=== PATIENT | male | born 1970 | race Caucasian/White ===

== ENCOUNTER 2022-10-01 19:42 | Emergency (ER) | payer MEDICAID, SELFPAY ==
[2022-10-01 19:43] VITALS: BP 113/87; PULSE 104; RESP 15; TEMP 36.6; O2SAT 97; BMI 26.5
--- NOTE | 2022-10-01 20:05 | CT_ITS ---
STUDY: CT ABDOMEN AND PELVIS WITH CONTRAST REASON FOR EXAM: Male, 52 years old. Abd pain -- IV PO Contrast RADIATION DOSAGE (If Supplied By Facility): CTDIvol = ( 18.85 ) mGy, DLP = ( 1018.93 ) mGycm TECHNIQUE: Transaxial images were obtained from the dome of the diaphragm to the symphysis pubis without oral contrast. Oral and amp; IV Gastrografin and amp; 100mL Isovue-300 was administered. Sagittal and coronal images were reconstructed. Individualized dose optimization techniques were used for this CT. COMPARISON: None. FINDINGS: There is a small pleural-based nodular density measuring 9.4 x 8.3 and 3.8 x 3.8. The visualized portions of the heart are within normal limits. Normal liver. Normal gallbladder and extrahepatic biliary system. Normal spleen. Normal pancreas. Normal bilateral adrenal glands. Normal right kidney. There is a left renal cyst measuring 3.3 x 3 cm with Hounsfield units in the range of simple fluid with well-circumscribed borders. Normal visualized stomach. There is mild distention of the proximal small bowel. There is a thick-walled appearance of the terminal ileum. There is mild distention of the colon especially the transverse colon with air-fluid levels. The patient may have diarrhea. There is diverticulosis without visualized diverticulitis. The appendix is visualized and appears normal. Normal abdominal aorta. Normal inferior vena cava. Normal retroperitoneum. Normal urinary bladder. Normal visualized prostate gland. There is a small umbilical hernia containing fat. Normal osseous structures. CT/Abdomen/Pelvis WITH Contrast IMPRESSION: There are mildly distended loops of small bowel in the left upper quadrant. There is a thick-walled appearance of the terminal ileum and a pattern of air-fluid levels throughout the colon suggesting that the patient has diarrhea. Findings are suspicious for pattern of enterocolitis. Benign-appearing left renal cyst. No appendicitis. Electronically Signed: Laura Silverio MD at 22:36 EST ,
--- NOTE | 2022-10-01 20:06 | EX.ED.DYSGE1 ---
HPI History of Present Illness Chief Complaint: Constipation Informant: patient Onset/Context/Timing Onset: Month(s) Narrative Narrative: Patient presents with not having adequate bowel movement for the past 2 weeks. When asked about his constipation he quickly corrects me and states that he does not have constipation, he has not been that prevents him from being able to pass stool. Patient states this has been an ongoing, waxing and waning issue for the past 2 years. He states this particular flare has been bad for the last 3 months. He was seen at [facility] in [place] in early July. I is able to review that ER note. He states he has also been to see his primary care physician multiple times. He is scheduled for a colonoscopy next week. He states because of the backed up stool he took his MiraLAX and Dulcolax prep yesterday, but only had a small bowel movement and passed a lot of liquid. He states other than that his last bowel movement was a week ago. He denies any prior abdominal surgeries. He has never had a colonoscopy. PFSH PFSH Medical History Anxiety Former smoker Allergy/AdvReac Type Severity Reaction Status Date / Time No Known Allergies Allergy Verified 10/01/22 19:47 Surgical History no surgical history no surgical history Social History Smoking Status: Former smoker ROS ROS ED Constitutional Constitutional ED: Denies chills or fever(s) Eyes Eyes: Denies change in vision or discharge from eye(s) ENT ENT ED: Denies discharge from eye(s), rhinorrhea or sore throat Cardiovascular Cardiovascular: Denies chest pain or palpitations Respiratory/Chest Respiratory/Chest: Denies cough or dyspnea Gastrointestinal Gastrointestinal: Reports abdominal pain, constipation and nausea; Denies diarrhea or vomiting Genitourinary Genitourinary ED: Denies dysuria Musculoskeletal Musculoskeletal: Denies back pain or extremity pain Integumentary Denies Abrasions or rash Neurologic Neurologic: Denies headache(s) or weakness Psychiatric Psychiatric: Denies anxiety or depression Allergic/Immunologic Allergic/Immunologic ED: Denies lip swelling or urticaria EXAM Physical Exam Const Vital Signs: 10/01/22 19:43 Temperature 97.9 F Temperature Source Temporal Pulse Rate 104 H Respiratory Rate 15 Blood Pressure 113/87 H Blood Pressure Mean 95 Pulse Ox 97 Oxygen Delivery Method Room Air Positive well nourished and well developed General Appearance ED: well developed HEENT Reports normocephalic and head/scalp atraumatic Eyes PERRL and EOMs intact bilaterally Neck supple Chest Wall inspection of chest normal and palpation of chest normal Resp normal respiratory effort and clear to auscultation bilaterally Cardio regular rate and regular rhythm GI non-tender Auscultation: hypoactive bowel sounds Palpation: soft Extremity normal to inspection Neuro oriented x3 and no sensory deficits noted Sensorium / Orientation: alert Motor Exam: strength 5/5 throughout Psych Mood & Affect: anxious Skin no rashes or lesions noted MDM MDM MDM Narrative Medical decision making narrative: CBC and chemistry studies obtained to evaluate for leukocytosis, anemia, electrolyte derangement. CT scan of the abdomen and pelvis with p.o. and IV contrast obtained to evaluate for bowel obstruction or other acute etiologies such as colitis. Patient given IV fluids along with morphine and Zofran for pain and nausea control. Lab Data Attestation: I reviewed the patient's lab results. Labs: Laboratory Results - last 24 hr 10/01/22 10/01/22 20:19 20:19 WBC 10.9 RBC 5.35 Hgb 15.7 Hct 47.9 MCV 89.5 MCH 29.3 MCHC 32.8 RDW Std Deviation 43.4 RDW Coeff of Aniket 13.2 Plt Count 299 MPV 9.8 Immature Gran % (Auto) 0.300 Neut % (Auto) 40.7 L Lymph % (Auto) 43.3 H Divide % (Auto) 9.8 Eos % (Auto) 4.8 Baso % (Auto) 1.1 H Absolute Neuts (auto) 4.4 Absolute Lymphs (auto) 4.70 H Nucleated RBC % 0 Atypical Lymphocytes 1+ Reactive Lymphocytes 1+ Platelet Estimate ADEQUATE RBC Morphology N CHROM Anisocytosis RARE Macrocytosis RARE Sodium 141 Potassium 3.4 L Chloride 105 Carbon Dioxide 29.0 Anion Gap 7 BUN 8 Creatinine 1.19 Estim Creat Clear Calc 73.27 Est GFR (MDRD) Af Amer 82 Est GFR (MDRD) Non-Af 68 BUN/Creatinine Ratio 6.7 L Glucose 104 Calcium 9.2 Total Bilirubin 0.30 Direct Bilirubin 0.10 AST 16 ALT 15 L Alkaline Phosphatase 64 Total Protein 7.5 Albumin 3.9 Globulin 3.6 Lipase 200 Radiography Diagnostic Testing: Clinical Impression(s) from Imaging Studies Abdomen/Pelvis CT 10/01/22 20:05 IMPRESSION: There are mildly distended loops of small bowel in the left upper quadrant. There is a thick-walled appearance of the terminal ileum and a pattern of air-fluid levels throughout the colon suggesting that the patient has diarrhea. Findings are suspicious for pattern of enterocolitis. Benign-appearing left renal cyst. No appendicitis. Electronically Signed: Laura Silverio MD at 22:36 EST , Treatment and Re-Evaluation Narrative: CBC is unremarkable with normal white count. Chemistry studies significant only for slightly low potassium at 3.4. LFTs and lipase are normal. CT scan of the abdomen pelvis reveals mildly distended loops of small bowel in the left upper quadrant. There is a thick-walled appearance of the terminal ileum. Findings noted throughout are suspicious for enterocolitis. On my review of the CT, he does have stool noted along the transverse and ascending colon. I do not feel an enema will be beneficial as he does not have significant stool noted in the descending colon. I will give him a bottle of GoLytely. He is scheduled for a colonoscopy next week. Patient has had ongoing symptoms for months with no evidence of leukocytosis or fever. I do not believe he needs antibiotics at this time. Return instructions given. Discharge Plan Triage Chief Complaint: Constipation ED Provider: Emma Anne Dx/Rx/DC Orders Clinical Impression: Constipation, Colitis Instructions: ED Understanding Colitis, ED Constipation (Adult) Primary Care Provider: Kailee Dominguez Referrals: Kailee Dominguez MD [Primary Care Provider] - Activity Restrictions/Additional Instructions: Follow-up for your colonoscopy next week as planned. Disposition Disposition: Home, Self Care
[2022-10-01] MEDS: Ondansetron 4 MG/2 ML Vial IV (20:28)
[2022-10-01] MEDS: 0.9% Normal Saline 1,000 ML 150 ML IV (20:29)
[2022-10-01 20:30] LABS: Absolute Neutrophil Count 4.4 X10^3/uL (2.0-7.7); Basophil# 0.12 X10^3/uL; Basophil% 1.1 % (0-1); Eosinophil# 0.52 X10^3/uL; Eosinophils% 4.8 % (0-5); Hematocrit 47.9 % (40-54); Hemoglobin 15.7 g/dL (13.0-16.5); Lymphocyte % 43.3 % (19-41); Mean Corp Hgb Conc 32.8 g/dL (32-36); Mean Corpuscular Hgb 29.3 pg (27.0-32.0); Mean Corpuscular Volume 89.5 fL (80-94); Mean Platelet Vol. 9.8 fl (6.2-12.0); Monocyte# 1.06 X10^3/uL; Monocyte% 9.8 % (0-10); NRBC Flagged by Analyzer 0 % (0-5); Neutrophil # 4.42 X10^3/uL (2.7-7.7); Neutrophil % 40.7 % (47-70); POSITIVE MORPHOLOGY YES; Platelet Count 299 K/mm3 (150-450); RBC Distribution Width CV 13.2 % (11.6-14.6); RBC Distribution Width SD 43.4 fl (35.1-43.9); Red Blood Count 5.35 M/mm3 (4.6-6.2); White Blood Count 10.9 K/mm3 (4.4-11.0)
[2022-10-01 20:34] LABS: Differential Indicated SCAN CRITERIA MET
[2022-10-01 20:53] LABS: Anisocytosis RARE; Atypical Lymphocyte 1+ %; Macrocytosis RARE; Platelet Estimate ADEQUATE (ADEQ); Reactive Lymphocyte 1+; Red Cell Morphology N CHROM NORMAL (NORM C&C)
[2022-10-01 20:56] LABS: AST(SGOT) 16 U/L (15-37); Albumin, Serum 3.9 g/dL (3.2-5.0); BUN 8 mg/dL (7-18); BUN/Creat Ratio 6.7 RATIO (10-20); Calcium,Total 9.2 mg/dL (8.5-10.1); Creatinine, Serum 1.19 mg/dL (0.70-1.30); EST Glomerular Filtration Rate 68 mL/min (>60); Est Glom Filt Rate - Afr Amer 82 mL/min (>60); Estimated Creatinine Clearance 73.27 ml/min; Globulin 3.6 g/dL (2.2-4.2); Glucose 104 mg/dL (74-106); Lipase 200 U/L (73-393); Protein, Total 7.5 g/dL (6.4-8.2)
[2022-10-01 20:57] LABS: Alanine Aminotransfer ALT/SGPT 15 U/L (16-61); Alkaline Phosphatase 64 U/L (45-117); Anion Gap 7 (5-15); Chloride 105 mmol/L (98-107); Potassium 3.4 mmol/L (3.5-5.1); Sodium Level 141 mmol/L (136-145)
[2022-10-01] MEDS: Electrolyte Solution/Peg's 4000 ML PO (23:08)
[2022-10-01 23:09] VITALS: BP 110/80; PULSE 74; RESP 16; O2SAT 97
== END 2022-10-01 23:10 | disposition home or self-care (01) ==
PROVIDERS: Emergency Provider Emergency Medicine; PCP Student in an Organized Health Care Education/Training Program; Visit Provider Emergency Medicine
DX: K52.9 Noninfective gastroenteritis and colitis, unspecified (principal); K59.00 Constipation, unspecified; Z87.891 Personal history of nicotine dependence
CPT/HCPCS: 74177; 80048; 80076; 83690; 85025; 96374; 99283; J7030; Q9967; A4216; J2405